=== PATIENT | female | born 1985 | race Caucasian/White ===

== ENCOUNTER 2020-06-04 11:18 | Outpatient (REF) | payer MEDICAID, SELFPAY ==
[2020-06-05 09:20] LABS: BV Int Neg Control Negative (Negative); BV Int Pos Control Positive (Positive)
[2020-06-05 14:52] LABS: C. trachomatis RNA TMA NOT DETECTED (NOT DETECTED); N. gonorrhoeae RNA TMA NOT DETECTED (NOT DETECTED)
[2020-06-08 06:37] LABS: HPV mRNA E6/E7 rflx Not Detected (Not Detected)
== END 2020-06-04 11:19 | disposition home or self-care (01) ==
LOC: HO.LAB 11:18
PROVIDERS: Visit Provider Advanced Practice Midwife
DX: Z01.419 Encounter for gynecological examination (general) (routine) without abnormal findings (principal); B00.9 Herpesviral infection, unspecified; E66.9 Obesity, unspecified; J45.909 Unspecified asthma, uncomplicated; Z20.2 Contact with and (suspected) exposure to infections with a predominantly sexual mode of transmission; Z91.013 Allergy to seafood; Z87.42 Personal history of other diseases of the female genital tract
CPT/HCPCS: 36415; 87480; 87491; 87510; 87591; 87624; 87660; 88142

== ENCOUNTER 2020-06-21 08:37 | Outpatient (REF) | payer MEDICAID, SELFPAY ==
[2020-06-21 10:46] LABS: HIV AB/AG Nonreactive (Nonreactive); HIV Num 1 0.07 S/CO (0.00-0.99)
[2020-06-21 10:53] LABS: HBsAGNum1 0.39 S/CO (0.00-0.99); Hepatitis B Surface Antigen Negative (Negative); ~Hepatitis C Antibody Nonreactive (Nonreactive)
[2020-06-21 16:09] LABS: Syphilis Screen Nonreactive (Nonreactive)
[2020-06-22 13:15] LABS: CT PCR NOT DETECTED (Not Detect.); NG PCR NOT DETECTED (Not Detect.)
== END 2020-06-21 08:38 | disposition home or self-care (01) ==
LOC: HO.LAB 08:37
PROVIDERS: Visit Provider Advanced Practice Midwife
DX: Z01.419 Encounter for gynecological examination (general) (routine) without abnormal findings (principal); Z87.42 Personal history of other diseases of the female genital tract; Z20.2 Contact with and (suspected) exposure to infections with a predominantly sexual mode of transmission
CPT/HCPCS: 86780; 86803; 87340; 87389; 87491; 87591

== ENCOUNTER 2020-08-20 13:25 | Outpatient (REF) | payer MEDICAID, SELFPAY ==
--- NOTE | ~2020-08-20 | MM_ITS ---
EXAMINATION: MM DIAGNOSTIC DIGITAL BREAST TOMOSYNTHESIS, BILATERAL CLINICAL INFORMATION: Prior history palpable fullness right breast. No correlate on baseline diagnostic mammography. Follow-up recommended. Patient no longer palpates the finding. No known family history breast cancer. The lifetime risk of breast cancer based on the Tyrer-Cuzick Model is 10%. COMPARISON: Mammography: Diagnostic digital breast tomosynthesis and targeted right breast ultrasound 01/05/2019. TECHNIQUE: Digital breast tomosynthesis is performed in both the craniocaudal and mediolateral oblique views along with computer-aided detection (CAD). Synthesized 2D images are generated from the tomosynthesis. FINDINGS: The breasts are heterogeneously dense, which may obscure small masses (ACR BI-RADS breast composition Category c). There is no interval mass or architectural abnormality or developing density. No skin thickening or coarsening of the Juventino's ligaments. The axilla and skin contours are unremarkable. No significant changes. Results are discussed with the patient at time of visit. Patient notes no areas of palpable concern. Patient may resume routine annual mammography, beginning age 40, or earlier as clinical risk factors warrant. MM/MM tomosynthesis diagnostic BI IMPRESSION: No mammographic evidence of malignancy. ASSESSMENT: BI-RADS 1: Negative RECOMMENDATION: Routine annual mammography screening beginning age 40, or earlier as clinical risk factors warrant. This patient's information was entered into a reminder system with a target due date for their next mammogram.
== END 2020-08-20 13:26 | disposition home or self-care (01) ==
LOC: HO.MAMMO 13:25
PROVIDERS: Visit Provider Registered Nurse Community Health
DX: N63.10 Unspecified lump in the right breast, unspecified quadrant (principal)
CPT/HCPCS: 77062; 77066

== ENCOUNTER 2021-05-01 12:07 | Outpatient (REF) | payer MEDICAID, SELFPAY ==
--- NOTE | ~2021-05-01 | XR_ITS ---
EXAMINATION: XR CHEST CLINICAL INFORMATION: Shortness of breath COMPARISON: Chest radiographs 03/10/2018, 09/29/2017 TECHNIQUE: 2 views of the chest were obtained. FINDINGS: Lungs are clear. No pneumothorax or pleural reaction. No airspace consolidation or groundglass opacity or effusion. The heart is normal in size. The hilar and mediastinal contours and bony structures are unremarkable. XR/XR chest 2V IMPRESSION: Unremarkable examination.
== END 2021-05-01 12:08 | disposition home or self-care (01) ==
LOC: HO.XRAY 12:07
PROVIDERS: PCP Registered Nurse Community Health; Visit Provider Registered Nurse Community Health
DX: R06.02 Shortness of breath (principal); Z86.16 Personal history of COVID-19
CPT/HCPCS: 71046